=== PATIENT | male | born 1940 | race Caucasian/White ===

== ENCOUNTER 2018-12-11 05:44 | Day surgery (SDC) | payer MEDICARE, OTHER ==
[2018-12-10 14:59] LABS: ALBUMIN 3.2 G/DL (3.4-5.0); ANION GAP 7 (8-16); BLOOD UREA NITROGEN 22 MG/DL (7-18); BUN/CREATININE RATIO 18.8 (5.4-32.0); CHLORIDE 100 MMOL/L (99-107); CREATININE 1.17 MG/DL (0.60-1.10); GLUCOSE 240 MG/DL (70-104); POTASSIUM 4.6 MMOL/L (3.5-5.1); SODIUM 138 MMOL/L (135-145); TOTAL CARBON DIOXIDE 30.7 MMOL/L (24-32); eGFR 60 ML/MIN
[2018-12-10 15:04] LABS: BASOPHILS # (AUTO) 0.1 X10'3 (0-0.2); BASOPHILS % (AUTO) 1.7 % (0-1); EOSINOPHILS # (AUTO) 0.2 X10'3 (0-0.9); EOSINOPHILS % (AUTO) 3.4 % (0-6); HEMATOCRIT 39.9 % (42.0-52.0); HEMOGLOBIN 13.7 g/dl (14.0-17.9); LYMPHOCYTES # (AUTO) 2.2 X10'3 (1.1-4.8); LYMPHOCYTES % (AUTO) 32.5 % (21-51); MEAN CORPUSCULAR HEMOGLOBIN 31.5 PG (27.0-31.0); MEAN CORPUSCULAR HGB CONC 34.4 g/dL (33.0-36.5); MEAN CORPUSCULAR VOLUME 91.5 FL (78-98); MEAN PLATELET VOLUME 8.9 FL (7.4-10.4); MONOCYTES # (AUTO) 0.6 X10'3 (0-0.9); MONOCYTES % (AUTO) 9.3 % (2-12); NEUTROPHILS # (AUTO) 3.6 X10'3 (1.8-7.7); NEUTROPHILS % (AUTO) 53.1 % (42-75); PLATELET COUNT 247 X10'3 (140-440); RED BLOOD COUNT 4.36 X10'6 (4.70-6.10); RED CELL DISTRIBUTION WIDTH 13.5 % (11.5-14.5); WHITE BLOOD COUNT 6.8 X10'3 (4.5-11.0)
[2018-12-11] VITALS (11 sets, daily range): BP systolic 118–149; BP diastolic 55–74
[~2018-12-11] VITALS: Ht 193 cm; Wt 121.2 kg
[2018-12-11] MEDS ORDERED: normal saline 1000ml 1,000 ML IV SCH ×2 (06:15→10:15)
[2018-12-11] MEDS ORDERED: FURO-150 PO (06:58)
[2018-12-11] MEDS ORDERED: POTA20PA40 PO (06:58)
[2018-12-11] MEDS ORDERED: LANS30CA56 PO (06:58)
[2018-12-11] MEDS ORDERED: FURO20TA4 PO (06:58)
[2018-12-11] MEDS ORDERED: FOLI0.4T2 PO (06:58)
[2018-12-11] MEDS ORDERED: COLE3.75 PO (06:58)
[2018-12-11] MEDS ORDERED: METO-384 PO (06:58)
[2018-12-11] MEDS ORDERED: GINK60CA PO (06:59)
[2018-12-11] MEDS ORDERED: OCUVITE PO (07:00)
[2018-12-11] MEDS ORDERED: MULT-955 PO (07:00)
[2018-12-11] MEDS ORDERED: POTA99TA6 PO (07:10)
[2018-12-11] MEDS ORDERED: METF-436 PO (07:10)
[2018-12-11] MEDS ORDERED: ZAR2.5T PO (07:10)
[2018-12-11] MEDS ORDERED: DABI150C PO (07:10)
[2018-12-11] MEDS ORDERED: CHOL400T PO (07:10)
[2018-12-11] MEDS ORDERED: VALS80TA32 PO (07:10)
[2018-12-11] MEDS ORDERED: PHEN100C12 PO (07:10)
[2018-12-11] MEDS ORDERED: OMEG-15 PO (07:10)
[2018-12-11] MEDS ORDERED: ceFAZolin 1GM/D5W- ADD-VANTAGE 50 ML IV ONE (07:37)
[2018-12-11] MEDS ORDERED: vancomycin 1,000mg inj ONE (07:37)
[2018-12-11] MEDS ORDERED: ceFAZolin 1000mg inj ONE (07:37)
[2018-12-11] MEDS ORDERED: LIDOcaine 1% W/epiNEPHrine 1:100,000 20ml vial ONE (07:38)
[2018-12-11] MEDS ORDERED: midazolam 2 mg/2 ml injection ONE (08:05)
[2018-12-11] MEDS ORDERED: fentaNYL/PF 50MCG/1 ML 2ML syringe ONE (08:05)
[2018-12-11] MEDS ORDERED: HYDROcodone/acetaminophen 5mg/325mg tablet PO PRN (10:15)
[2018-12-11] MEDS ORDERED: HYDROcodone/acetaminophen 10/325mg tab PO PRN (10:15)
[2018-12-11] MEDS ORDERED: vancomycin/NS 1 GM ADD-VANTAGE 250 ML X 1 DOSE IV ONE (11:00)
== END 2018-12-11 15:10 | disposition home or self-care (01) ==
LOC: SSTAY O 05:44
PROVIDERS: ATTEND Internal Medicine Cardiovascular Disease
DX: Z45.010 Encounter for checking and testing of cardiac pacemaker pulse generator [battery] (principal); I49.5 Sick sinus syndrome; E78.5 Hyperlipidemia, unspecified; I48.2 Chronic atrial fibrillation; E11.9 Type 2 diabetes mellitus without complications; I11.0 Hypertensive heart disease with heart failure; I25.10 Atherosclerotic heart disease of native coronary artery without angina pectoris; I50.30 Unspecified diastolic (congestive) heart failure; Z95.5 Presence of coronary angioplasty implant and graft; Z79.899 Other long term (current) drug therapy; Z79.84 Long term (current) use of oral hypoglycemic drugs
CPT/HCPCS: 33227; 36415; 80048; 82948; 85025; 85610; 93005; 99152; 99153; C1786; J0690; J2250; J3010; J3370; J7030; J7040; A4620; A6449